=== PATIENT | female | born 1950 | race Caucasian/White ===

== ENCOUNTER → 2018-01-09 | Day surgery (SDC) | payer OTHER ==
[2018-01-03 12:28] LABS: BASOPHILS % 0.5 % (0.0-1.0); EOSINOPHILS # (AUTO) 0.2 (0.0-0.4); EOSINOPHILS % 2.4 % (0.0-6.0); HEMATOCRIT 38.6 % (34.2-44.1); HEMOGLOBIN 12.7 g/dL (12.0-16.0); LYMPHOCYTES # (AUTO) 1.6 (1.0-3.2); LYMPHOCYTES % 25.7 % (18.0-39.1); MEAN CORPUSCULAR HEMOGLOBIN 30.3 pg (28-32); MEAN CORPUSCULAR HGB CONC 32.9 g/dL (31-35); MEAN CORPUSCULAR VOLUME 92.1 fL (81-99); MONOCYTES # (AUTO) 0.6 (0.2-0.8); MONOCYTES % 9.1 % (4.4-11.3); PLATELET COUNT 196 x10e3/uL (140-360); RED BLOOD COUNT 4.19 x10e6/uL (3.6-5.1); RED CELL DISTRIBUTION WIDTH 12.9 % (11.7-14.4)
--- NOTE | 2018-01-03 12:41 | Diagnostic Imaging Report ---
EXAMINATION: CHEST 2 VIEWS INDICATION: Left Hallux valgus. \S\PRE ADMIT COMPARISON: None FINDINGS: PA and lateral views TUBES and LINES: None. LUNGS: Lungs are well inflated. Lungs are clear. There is no evidence of pneumonia or pulmonary edema. PLEURA: No pleural effusion or pneumothorax. HEART AND MEDIASTINUM: The cardiomediastinal silhouette is unremarkable. BONES AND SOFT TISSUES: There are degenerative changes in the thoracic spine. Soft tissues are unremarkable. UPPER ABDOMEN: No free air under the diaphragm. IMPRESSION: No acute thoracic abnormality. Signed by: Dr. Remy Khan M.D. on 01/03/2018 12:38 PM
[2018-01-03 12:43] LABS: ANION GAP 12.4 mmol/L (8-16); BLOOD UREA NITROGEN 15 mg/dL (7-26); BUN/CREATININE RATIO 19 (6-25); CALCIUM 9.8 mg/dL (8.4-10.2); CARBON DIOXIDE 29 mmol/L (22-29); CHLORIDE 103 mmol/L (98-107); CREATININE, SERUM 0.78 mg/dL (0.57-1.11); EST GLOMERULAR FILTRATION RATE > 60 ML/MIN (60-); GLUCOSE 91 mg/dL (74-118); POTASSIUM 4.4 mmol/L (3.5-5.1); SODIUM 140 mmol/L (136-145)
[~2018-01-09] MED LIST: ACETAMINOPHEN 1000 MG/100 ML IV ONE; ACETAMINOPHEN/CODEINE 300MG - 30MG TAB ONE; BETAMETHASONE DISODIUM PHOS 6 MG/ML VIAL ONE; BUPIVACAINE HCL 0.5% INJ 30 ML VIAL INJ ONE; CEFAZOLIN SOD 1 GM VIAL ONE; DEXAMETHASONE SOD PHOS INJ 4 MG/ML VIAL ONE; FENTANYL CITRATE/PF 100MCG/2 ML INJ ONE; HYDROMORPHONE 1MG/1ML INJ ONE; KETOROLAC TROMETHAMINE 30 MG/ML VIAL ONE; LIDOCAINE HCL 1% LOCAL INJ 20 ML VIAL ONE; LIDOCAINE HCL 2% LOCAL INJ 5 ML SDV VIAL INJ ONE; LISINOPRIL5 MG PO; LOSARTAN POTASS25 MG PO; MEGA RED; METOCLOPRAMIDE HCL 10 MG/2ML VIAL ONE; MIDAZOLAM HCL 2 MG/2 ML VIAL ONE; MUPIROCIN 2% OINT 22 GM TUBE ONE; ONDANSETRON HCL INJ 2 MG/ML VIAL ONE; PROPOFOL IV EMULSION 10 MG/ML 20 ML VIAL ONE; SCOPOLAMINE 1.5 MG PATCH ONE; SEVOFLURANE INHAL SOLN 250 ML PEN BTL ONE; [UNRECOGNIZED DRUG - OTHER]; [UNRECOGNIZED DRUG - OTHER]; [UNRECOGNIZED DRUG - OTHER]; [UNRECOGNIZED DRUG - OTHER]; [UNRECOGNIZED DRUG - OTHER] PO
--- NOTE | 2018-01-09 10:00 | Operative Report ---
DATE OF PROCEDURE: January 09, 2018 PREOPERATIVE DIAGNOSES 1. Painful hallux valgus deformity, left foot. 2. Painful contracted hammertoe, 2nd digit, left. 3. Painful contracted hammertoe, 3rd digit, left. 4. Painful contracted hammertoe, 4th digit, left. 5. Painful contracted hammertoe, 5th digit, left. 6. Painful plantar calcaneal heel spur with plantar fasciitis, left foot. POSTOPERATIVE DIAGNOSES 1. Painful hallux valgus deformity, left foot. 2. Painful contracted hammertoe, 2nd digit, left. 3. Painful contracted hammertoe, 3rd digit, left. 4. Painful contracted hammertoe, 4th digit, left. 5. Painful contracted hammertoe, 5th digit, left. 6. Painful plantar calcaneal heel spur with plantar fasciitis, left foot. OPERATIVE PROCEDURES 1. Silver bunionectomy, left foot. 2. Arthroplasty, 2nd digit with K-wire fixation, 2nd through 4th. 3. Arthroplasty, 3rd digit with K-wire fixation, 2nd through 4th. 4. Arthroplasty, 4th digit with K-wire fixation, 2nd through 4th. 5. Arthroplasty, 5th digit with K-wire fixation, 2nd through 4th. 6. Resection of plantar calcaneal heel spur. 7. Trigger point shot of cortisone. 8. Intraoperative use of fluoroscopy. 9. Application of posterior splint. ANESTHESIA: General. HEMOSTASIS: Pneumatic thigh tourniquet at 350 mmHg. PROCEDURE IN DETAIL: Patient was taken into the operating room and placed on the operating room table in the supine position. Following induction of general anesthesia by the anesthesiologist, Webril wraps were placed on the patient's left thigh followed by application of a left thigh tourniquet. The left lower extremity was then prepped and draped in the usual aseptic manner. The following procedure was then performed: PROCEDURE #1: Silver bunionectomy, left foot. Attention was directed to the dorsomedial aspect of the 1st metatarsophalangeal joint where a 6 cm linear incision was performed. Incision was deepened down to the joint capsule. Longitudinal capsulotomy was then performed exposing a dorsomedial exostosis to the 1st metatarsal head. Via the use of an oscillating saw and rotating bur, dorsomedial exostosis was excised from the operation site in toto. Range of motion was still noted to be track bound, so the extensor brevis was isolated and tenotomized. Once that was done, excellent range of motion and align was achieved. PROCEDURES 2-5: Arthroplasty, 2nd through 5th with K-wire fixation, 2nd through 4th. Attention was then directed to the dorsal aspect of the above-mentioned toes at the proximal interphalangeal joint where a 3 cm linear incision was performed. Incision was deepened down to the joint capsule. Transverse capsulotomy was then performed exposing the head of the proximal phalanx. Via the use of an oscillating saw, the head of the proximal phalanxes were excised from the operation site in toto. Second through 4th toes were still noted to be contractured. A 0.045 K-wire was introduced up the metatarsophalangeal joint to achieve proper anatomic reduction. PROCEDURE #6: Resection of plantar calcaneal spur, left foot. Attention was then directed to the medial aspect of left heel where a 6-7 cm linear incision was performed. Incision was deepened down to the plantar fascial level. The medial one-half of the plantar fascia was then resected exposing the plantar calcaneal spur. Via use of an osteotome and mallet and reciprocating bur, the spur was excised from the operation site in toto. PROCEDURE #7: Intraoperative use of fluoroscopy was then used to make sure proper alignment and fixation was achieved. Closure was then obtained utilizing 3-0 Vicryl, 4-0 Vicryl and 4-0 nylon for capsule, subcutaneous tissue and skin respectively. PROCEDURE #8: Trigger point shot of cortisone was then given to the 1st and 4th interspace and also left heel. Then approximately 15 mL of 0.5% plain Marcaine plus 5-10 mL of 1% Xylocaine plain were then used to achieve local anesthesia to the above the surgical area. Sterile dressing was applied. Upon release of the thigh tourniquet, blood hyperemia was noted immediate to all digits of the patient's left foot. PROCEDURE #9: Application of posterior splint. A properly placed posterior splint was then applied keeping the foot at 90 degrees with respect to the leg to try prevent any type of postop complications. Patient was then transferred from the OR to the recovery room with vital signs stable and neurovascular status intact. No intraoperative complications were encountered. Blood loss from the surgery was minimal. Patient to remain nonweightbearing with the aid of crutches. Keep her foot elevated and is to apply an ice pack to the ankle joint area. Job#: [id number]
[2018-01-09 10:25] VITALS: BP 136/61
--- NOTE | 2018-01-09 11:57 | Diagnostic Imaging Report ---
FOOT LEFT AP LAT - 3 views HISTORY: Pain COMPARISON: None available. FINDINGS: See impression. IMPRESSION: Overlying cast obscures fine bony and soft tissue details. Status post pin fixation of left second, third, and fourth phalanges. No definite evidence of acute displaced fracture or dislocation. Diffuse soft tissue swelling. Signed by: Dr. Jamaal Saunders MD on 01/09/2018 11:54 AM
== END | disposition home or self-care (01) ==
LOC: OR 05:12
PROVIDERS: ATTEND Podiatrist Foot Surgery
DX: M20.12 Hallux valgus (acquired), left foot (principal); M77.32 Calcaneal spur, left foot; M20.42 Other hammer toe(s) (acquired), left foot; M72.2 Plantar fascial fibromatosis; J45.909 Unspecified asthma, uncomplicated; G47.33 Obstructive sleep apnea (adult) (pediatric); I10 Essential (primary) hypertension; Z01.810 Encounter for preprocedural cardiovascular examination; Z01.812 Encounter for preprocedural laboratory examination; Z01.818 Encounter for other preprocedural examination
CPT/HCPCS: 28119; 28285 ×4; 28292; 36415; 71046; 73620; 80048; 85025; 93005; J0690; J0720; J1100; J1170; J1885; J2001 ×2; J2250; J2405; J2765

== ENCOUNTER → 2021-04-07 | Day surgery (SDC) | payer MEDICARE ==
[2021-04-03 15:21] LABS: BASOPHILS % 0.5 % (0.0-1.0); EOSINOPHILS # (AUTO) 0.2 (0.0-0.4); EOSINOPHILS % 2.3 % (0.0-6.0); HEMATOCRIT 37.6 % (34.2-44.1); HEMOGLOBIN 11.8 g/dL (12.0-16.0); LYMPHOCYTES # (AUTO) 1.6 (1.0-3.2); LYMPHOCYTES % 18.4 % (18.0-39.1); MEAN CORPUSCULAR HEMOGLOBIN 29.4 pg (28-32); MEAN CORPUSCULAR HGB CONC 31.4 g/dL (31-35); MEAN CORPUSCULAR VOLUME 93.5 fL (81-99); MONOCYTES # (AUTO) 0.6 (0.2-0.8); MONOCYTES % 6.9 % (4.4-11.3); NEUTROPHILS # (AUTO) 6.3 (2.1-6.9); NEUTROPHILS % 71.7 % (38.7-80.0); PLATELET COUNT 254 x10e3/uL (140-360); RED BLOOD COUNT 4.02 x10e6/uL (3.6-5.1); RED CELL DISTRIBUTION WIDTH 13.3 % (11.7-14.4)
[2021-04-03 15:39] LABS: ANION GAP 12.1 mmol/L (8-16); CALCIUM 9.1 mg/dL (8.4-10.2); CREATININE, SERUM 1.16 mg/dL (0.57-1.11); POTASSIUM 4.1 mmol/L (3.5-5.1)
[~2021-04-07] MED LIST changes: -ACETAMINOPHEN 1000 MG/100 ML IV ONE; -ACETAMINOPHEN/CODEINE 300MG - 30MG TAB ONE; -BETAMETHASONE DISODIUM PHOS 6 MG/ML VIAL ONE; +BUPIVACAINE 0.25% 30ML SDV ONE; -BUPIVACAINE HCL 0.5% INJ 30 ML VIAL INJ ONE; -CEFAZOLIN SOD 1 GM VIAL ONE; +DEXAMETHASONE SOD PHOS INJ 4 MG/ML SDV ONE; -DEXAMETHASONE SOD PHOS INJ 4 MG/ML VIAL ONE; +EPHEDRINE SULFATE INJ 50 MG/ML VIAL ONE; +FUROSEMIDE40 MG PO; +IRON PO; -KETOROLAC TROMETHAMINE 30 MG/ML VIAL ONE; +LIDOCAINE 1% W/EPINEPHRINE 20 ML VIAL ONE; -LIDOCAINE HCL 1% LOCAL INJ 20 ML VIAL ONE; +LOSARTAN POTAS100 MG PO; -MUPIROCIN 2% OINT 22 GM TUBE ONE; -ONDANSETRON HCL INJ 2 MG/ML VIAL ONE; +ONDANSETRON HCL INJ 2MG/ML 2ML 2 MG/ML VIAL ONE; +PLAQUENIL200 MG PO; +POTASSIUM CHLO20 ME1 PO; +POVIDONE IODINE 0.05% 0.05 % ML PO ONE; +PROMETHAZINE HCL (IM) 25 MG/ML VIAL IM ONE; +PROTONIX20 MG PO; +PROVENTIL HFA6.7 GM INH; -SCOPOLAMINE 1.5 MG PATCH ONE; +SUCRALFATE1 GM PO; +SUGAMMADEX SODIUM 200 MG/2 ML VIAL IV ONE; +ULTRAM50 MG PO; +VITAMIN B122500 MCG PO
[2021-04-07 12:53] VITALS: BP 133/68
== END | disposition home or self-care (01) ==
LOC: OR 05:23
PROVIDERS: ATTEND Obstetrics & Gynecology
DX: N83.201 Unspecified ovarian cyst, right side (principal); G47.33 Obstructive sleep apnea (adult) (pediatric); I10 Essential (primary) hypertension; J45.909 Unspecified asthma, uncomplicated; M06.9 Rheumatoid arthritis, unspecified; K28.9 Gastrojejunal ulcer, unspecified as acute or chronic, without hemorrhage or perforation; Z01.810 Encounter for preprocedural cardiovascular examination; Z01.812 Encounter for preprocedural laboratory examination; Z01.818 Encounter for other preprocedural examination; Z20.822 Contact with and (suspected) exposure to COVID-19; Z79.899 Other long term (current) drug therapy; Z68.35 Body mass index [BMI] 35.0-35.9, adult
CPT/HCPCS: 36415; 58661; 71046; 80048; 85025; 88305; 93005; J1100; J1170; J2001; J2250; J2405; J2550; J2704; J2765; J3010; U0002; 88304